=== PATIENT | female | born 1980 | race Caucasian/White ===

== ENCOUNTER 2018-06-02 16:42 | Emergency (ER) | payer BC, OTHER ==
--- NOTE | 2018-06-02 17:16 | EDM.PDOC ---
ED HPI GENERAL MEDICAL PROBLEM - General Chief Complaint: General Stated Complaint: HIGH BP Time Seen by Provider: 06/02/18 17:12 Source of Information: Reports: Patient History Limitations: Reports: No Limitations - History of Present Illness INITIAL COMMENTS - FREE TEXT/NARRATIVE: HISTORY AND PHYSICAL: History of present illness: Patient is a 37-year-old female who presents to the clinic today with concerns of high blood pressure. Patient states that while she was at work today she started noticing tingling sensation in her right hand that would come off and on. She states she told a coworker who decided to check her blood pressure and it was elevated in the 170s systolic over 90s diastolic at work. Patient is currently on a hypertensive medication given by the residency clinic. She states she follows up closely and was there a month ago and was well controlled. She states the sensation in her right hand feels as if her arm is falling asleep. She states this is coming off and on and is not staying. She states she is able to move the arm without any difficulties. Denies any pain or injury of the arm. Patient states she has had a "cold" the past several days with nasal congestion and cough. She notes feeling short of breath due to the cough. She does smoke a pack a day for over 20 years. Patient denies palpitations, difficulties breathing, wheezing, chest pain, abdominal pain, neck pain or arm pain, nausea, vomiting, or all other GI, , respiratory, or cardiovascular symptoms. Patient states she does have a history of hypertension and depression but denies any other health history. Review of systems: As per history of present illness and below otherwise all systems reviewed and negative. Past medical history: As per history of present illness and as reviewed below otherwise noncontributory. Surgical history: As per history of present illness and as reviewed below otherwise noncontributory. Social history: See social history for further information Family history: As per history of present illness and as reviewed below otherwise noncontributory. Physical exam: General: Patient is alert, oriented, and in no acute distress. She is sitting comfortably on exam table. HEENT: Atraumatic, normocephalic, pupils equal and reactive bilaterally, negative for conjunctival pallor or scleral icterus, mucous membranes moist, TMs normal bilaterally, throat clear, neck supple, nontender, trachea midline. No drooling or trismus noted. No meningeal signs. No hot potato voice noted. Lungs: Clear to auscultation, breath sounds equal bilaterally, chest nontender. Heart: S1S2, regular rate and rhythm. Patient does have a grade 3-4 systolic murmur best heard at the right upper sternal border Abdomen: Soft, nondistended, nontender. Negative for masses or hepatosplenomegaly. Negative for costovertebral tenderness. Pelvis: Stable nontender. Genitourinary: Deferred. Rectal: Deferred. Skin: Intact, warm, dry. No lesions or rashes noted. Extremities: Atraumatic, negative for cords or calf pain. Neurovascular unremarkable. Neuro: Awake, alert, oriented. Cranial nerves II through XII unremarkable. Cerebellum unremarkable. Motor and sensory unremarkable throughout. Exam nonfocal. Notes: Patient did have a murmur on exam today which she states she's never had a history of this. We'll do further workup to evaluate this murmur and her hypertension today. No intracranial bleed or mass noted. Mild nonspecific white matter disease, likely micro-angioplasty. Ethmoid and maxillary sinus disease. This may be acute sinusitis. After talking the patient should, she states she has been having issues with her sinuses but did not want to talk about that today as she was more concerned about her other health concerns. We'll treat for acute sinusitis. Lab work is unremarkable. Her blood pressure has somewhat improved. Chest x-ray shows no acute cardiopulmonary process. Discussed the importance for follow-up with her primary care provider. Supportive care measures were reviewed and discussed. Voices understanding and is agreeable to plan of care. Denies any further questions or concerns at this time. Diagnostics: CBC, CMP, Ekg, troponin, UA, urine hCG, chest x-ray, head CT Therapeutics; Saline, K-Dur Prescription: Augmentin Impression: Mild hypokalemia Elevated blood pressure Acute sinusitis Plan: 1. Take medication as prescribed. 2. Follow-up with your primary care provider in the next 1-2 days as discussed. 3. Return to the ED as needed and as discussed. Definitive disposition and diagnosis as appropriate pending reevaluation and review of above. - Related Data Allergies Allergy/AdvReac Type Severity Reaction Status Date / Time No Known Allergies Allergy Verified 06/02/18 17:09 Home Meds: Home Meds Amoxicillin/Potassium Clav [Augmentin 875-125 Tablet] 1 each PO BID 10 Days #20 tablet 06/02/18 [Rx] Sertraline [Zoloft] 50 mg PO DAILY 06/02/18 [History] Triamterene/Hydrochlorothiazid [Triamterene-HCTZ 37.5-25 MG] 1 tab PO DAILY [History] ED ROS GENERAL - Review of Systems Review Of Systems: ROS reveals no pertinent complaints other than HPI. ED EXAM, GENERAL - Physical Exam Exam: See Below (See dictation) Course - Vital Signs Last Recorded V/S: Last Vital Signs Temp 97.3 F 06/02/18 17:11 Pulse 56 L 06/02/18 18:52 Resp 16 06/02/18 18:52 BP 162/91 H 06/02/18 18:52 Pulse Ox 98 06/02/18 18:52 - Orders/Labs/Meds Orders: Active Orders 24 hr Category Date Time Status EKG Documentation Completion [RC] STAT Care 06/02/18 17:25 Active Chest 1V Frontal [CR] Stat Exams 06/02/18 17:25 Taken Labs: Laboratory Tests 06/02/18 06/02/18 06/02/18 Range/Units 17:31 17:31 18:10 WBC 7.26 (4.0-11.0) K/uL RBC 5.03 (4.30-5.90) M/uL Hgb 14.6 (12.0-16.0) g/dL Hct 42.7 (36.0-46.0) % MCV 84.9 (80.0-98.0) fL MCH 29.0 (27.0-32.0) pg MCHC 34.2 (31.0-37.0) g/dL RDW Std Deviation 41.6 (28.0-62.0) fl RDW Coeff of Jeff 14 (11.0-15.0) % Plt Count 148 L (150-400) K/uL MPV 11.00 (7.40-12.00) fL Neut % (Auto) 51.1 (48.0-80.0) % Lymph % (Auto) 38.0 (16.0-40.0) % [place] % (Auto) 6.5 (0.0-15.0) % Eos % (Auto) 4.0 (0.0-7.0) % Baso % (Auto) 0.4 (0.0-1.5) % Neut # (Auto) 3.7 (1.4-5.7) K/uL Lymph # (Auto) 2.8 H (0.6-2.4) K/uL [place] # (Auto) 0.5 (0.0-0.8) K/uL Eos # (Auto) 0.3 (0.0-0.7) K/uL Baso # (Auto) 0.0 (0.0-0.1) K/uL Nucleated RBC % 0.0 /100WBC Nucleated RBCs # 0 K/uL Sodium 138 (136-145) mmol/L Potassium 3.3 L (3.5-5.1) mmol/L Chloride 102 (98-107) mmol/L Carbon Dioxide 28.1 (21.0-32.0) mmol/L BUN 17 (7.0-18.0) mg/dL Creatinine 0.9 (0.6-1.0) mg/dL Est Cr Clr Drug Dosing 77.01 mL/min Estimated GFR (MDRD) > 60.0 ml/min Glucose 99 (74-106) mg/dL Calcium 8.9 (8.5-10.1) mg/dL Total Bilirubin 0.1 L (0.2-1.0) mg/dL AST 15 (15-37) IU/L ALT 23 (14-63) IU/L Alkaline Phosphatase 74 (46-116) U/L Troponin I < 0.050 (0.000-0.056) ng/mL Total Protein 7.0 (6.4-8.2) g/dL Albumin 3.5 (3.4-5.0) g/dL Globulin 3.5 (2.6-4.0) g/dL Albumin/Globulin Ratio 1.0 (0.9-1.6) Urine Color YELLOW Urine Appearance CLEAR Urine pH 6.0 (5.0-8.0) Ur Specific [place] 1.015 (1.001-1.035) Urine Protein NEGATIVE (NEGATIVE) mg/dL Urine Glucose (UA) NEGATIVE (NEGATIVE) mg/dL Urine Ketones NEGATIVE (NEGATIVE) mg/dL Urine Occult Blood NEGATIVE (NEGATIVE) Urine Nitrite NEGATIVE (NEGATIVE) Urine Bilirubin NEGATIVE (NEGATIVE) Urine Urobilinogen 0.2 (<2.0) EU/dL Ur Leukocyte Esterase NEGATIVE (NEGATIVE) Urine HCG, Qual (NEGATIVE) 06/02/18 Range/Units 18:10 WBC (4.0-11.0) K/uL RBC (4.30-5.90) M/uL Hgb (12.0-16.0) g/dL Hct (36.0-46.0) % MCV (80.0-98.0) fL MCH (27.0-32.0) pg MCHC (31.0-37.0) g/dL RDW Std Deviation (28.0-62.0) fl RDW Coeff of Jeff (11.0-15.0) % Plt Count (150-400) K/uL MPV (7.40-12.00) fL Neut % (Auto) (48.0-80.0) % Lymph % (Auto) (16.0-40.0) % [place] % (Auto) (0.0-15.0) % Eos % (Auto) (0.0-7.0) % Baso % (Auto) (0.0-1.5) % Neut # (Auto) (1.4-5.7) K/uL Lymph # (Auto) (0.6-2.4) K/uL [place] # (Auto) (0.0-0.8) K/uL Eos # (Auto) (0.0-0.7) K/uL Baso # (Auto) (0.0-0.1) K/uL Nucleated RBC % /100WBC Nucleated RBCs # K/uL Sodium (136-145) mmol/L Potassium (3.5-5.1) mmol/L Chloride (98-107) mmol/L Carbon Dioxide (21.0-32.0) mmol/L BUN (7.0-18.0) mg/dL Creatinine (0.6-1.0) mg/dL Est Cr Clr Drug Dosing mL/min Estimated GFR (MDRD) ml/min Glucose (74-106) mg/dL Calcium (8.5-10.1) mg/dL Total Bilirubin (0.2-1.0) mg/dL AST (15-37) IU/L ALT (14-63) IU/L Alkaline Phosphatase (46-116) U/L Troponin I (0.000-0.056) ng/mL Total Protein (6.4-8.2) g/dL Albumin (3.4-5.0) g/dL Globulin (2.6-4.0) g/dL Albumin/Globulin Ratio (0.9-1.6) Urine Color Urine Appearance Urine pH (5.0-8.0) Ur Specific [place] (1.001-1.035) Urine Protein (NEGATIVE) mg/dL Urine Glucose (UA) (NEGATIVE) mg/dL Urine Ketones (NEGATIVE) mg/dL Urine Occult Blood (NEGATIVE) Urine Nitrite (NEGATIVE) Urine Bilirubin (NEGATIVE) Urine Urobilinogen (<2.0) EU/dL Ur Leukocyte Esterase (NEGATIVE) Urine HCG, Qual NEGATIVE (NEGATIVE) Meds: Medications Discontinued Medications Generic Name Dose Route Start Last Admin Trade Name Freq PRN Reason Stop Dose Admin Sodium Chloride 1,000 mls @ 999 mls/hr 06/02/18 17:25 06/02/18 17:53 Normal Saline IV 06/02/18 18:25 999 mls/hr STAT ONE Administration Potassium Chloride 20 meq 06/02/18 18:12 06/02/18 18:53 Klor-Con M20 PO 06/02/18 18:13 20 meq ONETIME ONE Administration Departure - Departure Time of Disposition: 20:02 Disposition: Home, Self-Care 01 Clinical Impression: Hypokalemia Acute sinusitis Qualifiers: Sinusitis location: unspecified location Recurrence: not specified as recurrent Qualified Code(s): J01.90 - Acute sinusitis, unspecified Hypertension Qualifiers: Hypertension type: unspecified Qualified Code(s): I10 - Essential (primary) hypertension - Discharge Information Prescriptions: Amoxicillin/Potassium Clav [Augmentin 875-125 Tablet] 1 each PO BID 10 Days #20 tablet Instructions: Sinusitis, Adult, [id number] Referrals: PCP,Unknown [Primary Care Provider] - Forms: ED Department Discharge Additional Instructions: The following information is given to patients seen in the emergency department who are being discharged to home. This information is to outline your options for follow-up care. We provide all patients seen in our emergency department with a follow-up referral. The need for follow-up, as well as the timing and circumstances, are variable depending upon the specifics of your emergency department visit. If you don't have a primary care physician on staff, we will provide you with a referral. We always advise you to contact your personal physician following an emergency department visit to inform them of the circumstance of the visit and for follow-up with them and/or the need for any referrals to a consulting specialist. The emergency department will also refer you to a specialist when appropriate. This referral assures that you have the opportunity for follow-up care with a specialist. All of these measure are taken in an effort to provide you with optimal care, which includes your follow-up. Under all circumstances we always encourage you to contact your private physician who remains a resource for coordinating your care. When calling for follow-up care, please make the office aware that this follow-up is from your recent emergency room visit. If for any reason you are refused follow-up, please contact the [facility] at and asked to speak to the emergency department charge nurse. [facility] [address] [place] [address] [place] [address] 1. Take medication as prescribed. 2. Follow-up with your primary care provider in the next 1-2 days as discussed. 3. Return to the ED as needed and as discussed. - My Orders Last 24 Hours: My Active Orders 06/02/18 17:25 EKG Documentation Completion [RC] STAT Chest 1V Frontal [CR] Stat - Assessment/Plan Last 24 Hours: My Active Orders 06/02/18 17:25 EKG Documentation Completion [RC] STAT Chest 1V Frontal [CR] Stat
[2018-06-02] MEDS ORDERED: Sodium Chloride 0.9% 1,000 ML IV ONE (17:25)
[2018-06-02 18:06] LABS: CHLORIDE,CL 102 mmol/L (98-107); SODIUM,NA 138 mmol/L (136-145)
[2018-06-02] MEDS ORDERED: Potassium Chloride 20 MEQ Tab.ER PO ONE (18:12)
--- NOTE | 2018-06-02 19:47 | CT ---
INDICATION: Pain, hypertension. TECHNIQUE: CT head without contrast. COMPARISON: None. FINDINGS: CSF spaces: Within normal limits for age. Brain parenchyma: Dela Cruz-white differentiation is distinct. Minimal low density in the deep white matter. No intracranial bleed or mass effect. Skull base and calvarium: Air-fluid levels in the maxillary sinuses as well as ethmoid sinus opacification. The visualized orbits are grossly unremarkable. No skull fractures. IMPRESSION: 1. No intracranial bleed or mass effect. 2. Mild nonspecific white matter disease, likely microangiopathy. 3. Ethmoid and maxillary sinus disease. In the correct clinical setting this can be seen in acute sinusitis. Please note that all CT scans at this facility use dose modulation, iterative reconstruction, and/or weight-based dosing when appropriate to reduce radiation dose to as low as reasonably achievable. Dictated by Hitesh Cope MD @ Jun 02 2018 7:36PM Signed by Dr. Hitesh Cope @ Jun 02 2018 7:45PM
--- NOTE | 2018-06-02 21:13 | CR ---
INDICATION: Cough and hypertension. TECHNIQUE: Chest 1 view COMPARISON: None FINDINGS: Cardiovascular and mediastinum: Heart size and vasculature are normal in caliber and appearance. Lungs and pleural spaces: Lungs are clear. No sign of infiltrate or mass. No sign of pleural effusion. No pneumothorax. Bones and soft tissues: No significant findings. IMPRESSION: No acute or significant findings. Dictated by Hitesh Cope MD @ Jun 02 2018 9:10PM Signed by Dr. Hitesh Cope @ Jun 02 2018 9:11PM
== END 2018-06-02 20:15 | disposition home or self-care (01) ==
LOC: MW.ED 16:42
DX: I10 Essential (primary) hypertension (principal); J01.90 Acute sinusitis, unspecified; E87.6 Hypokalemia; Z79.899 Other long term (current) drug therapy
CPT/HCPCS: 70450; 71045; 80053; 81003; 81025; 84484; 85025; 93005; 96360; 99284; A9270; J7040; 99283

== ENCOUNTER 2018-07-12 18:53 | Emergency (ER) | payer BC ==
--- NOTE | 2018-07-12 19:31 | EDM.PDOC ---
ED HPI GENERAL MEDICAL PROBLEM - General Chief Complaint: Skin Complaint Stated Complaint: PERSONAL ISSUE Time Seen by Provider: 07/12/18 19:25 Source of Information: Reports: Patient History Limitations: Reports: No Limitations - History of Present Illness INITIAL COMMENTS - FREE TEXT/NARRATIVE: HISTORY AND PHYSICAL: History of present illness: Patient is a 37-year-old female who presents to the emergency room with complaints of rectal pain. She reports that she noticed an area of redness and swelling to the right leg near the rectum on Tuesday (07/09/18) and had followed up with a primary care provider on Tuesday for evaluation of this. She was placed on Bactrim DS. She states she has been taking her medications as prescribed (on day #3 of abx). She feels the area is more painful to palpation, increased with sitting or ambulation. She feels that there is drainage coming from the area, although can not find a specific source. Patient denies any fever , chills, headache, change in vision, syncope or near syncope. Denies any chest pain, back pain, shortness of breath or cough. Denies any abdominal pain, nausea , vomiting, diarrhea, constipation or dysuria. Has not noted any blood in urine or stool. Patient has been eating and drinking appropriately. Review of systems: As per history of present illness and below otherwise all systems reviewed and negative. Past medical history: As per history of present illness and as reviewed below otherwise noncontributory. Surgical history: As per history of present illness and as reviewed below otherwise noncontributory. Social history: See social history for further information Family history: As per history of present illness and as reviewed below otherwise noncontributory. Physical exam: General: Well-developed and well-nourished 37-year-old female. Alert and oriented. Nontoxic appearing and in no acute distress. HEENT: Atraumatic, normocephalic, pupils equal and reactive bilaterally, negative for conjunctival pallor or scleral icterus, mucous membranes moist, TMs normal bilaterally, throat clear, neck supple, nontender, trachea midline. No drooling or trismus noted. No meningeal signs. No hot potato voice noted. Lungs: Clear to auscultation, breath sounds equal bilaterally, chest nontender. Heart: S1S2, regular rate and rhythm without overt murmur Abdomen: Soft, nondistended, nontender. Negative for masses or hepatosplenomegaly. Negative for costovertebral tenderness. Pelvis: Stable nontender. Genitourinary: Deferred. Rectal: See SKIN for details. Skin: The inner one third of the medial right gluteal is diffusely erythematous , there is a localized area that is firm to palpation approximately the size of a golf ball to the medial gluteus at approximately 2 o'clock position from the rectum. The firmness does not extend into the rectum rather just on the outside rim approximately 1 finger breath. Nonfluctuant. Otherwise skin is intact, warm , dry. No lesions or rashes noted. Extremities: Atraumatic, moves all extremities per self with difficulty or deficits, negative for cords or calf pain. Neurovascular unremarkable. Neuro: Awake, alert, oriented. Cranial nerves II through XII unremarkable. Cerebellum unremarkable. Motor and sensory unremarkable throughout. Exam nonfocal. Notes: Patient is agreeable to routine lab work along with imagining. CT of pelvis shows Right posterior perianal abscess just distal to the anal canal measuring 2.7 x 1.[address] Sykes was consulted on this patient. He states he'll see the patient early in the morning tomorrow. Would like the patient started on clindamycin 300 mg 3 times a day 10 days. All this information was shared with the patient. She is agreeable to plan of care. Supportive care measures were reviewed and discussed. Voices understanding and is agreeable to plan of care. Denies any further questions or concerns at this time. Diagnostics: CBC, CMP, Blood Culture, UA, HCGU, CT pelvis Therapeutics: IV fluids, Zosyn Prescription: Clindamycin Closter (#20) Impression: Perianal abscess Plan: 1. Stop the Bactrim DS. Clindamycin has been prescribed 2. May take the pain medications as directed. Will cause drowsiness a do not take it will driving her needing to be functioning outside of the house. 3. Follow up with Dr Sykes tomorrow. He wants you to call his office tomorrow morning at [address] Sykes (general surgeon) at [phone] Sykes would like to see you in the morning (07/13/2018) for possible I&D. Please do not eat or drink anything after midnight tonight. His office is located at the [facility]. 4. Return to the ED as needed and as discussed. Definitive disposition and diagnosis as appropriate pending reevaluation and review of above. Right Buttock Pain Score (Numeric/FACES): 10 - Related Data Allergies Allergy/AdvReac Type Severity Reaction Status Date / Time No Known Allergies Allergy Verified 07/12/18 19:14 Home Meds: Home Meds Sertraline [Zoloft] 50 mg PO DAILY 06/02/18 [History] Triamterene/Hydrochlorothiazid [Triamterene-HCTZ 37.5-25 MG] 1 tab PO DAILY [History] Sulfamethoxazole/Trimethoprim [Bactrim Ds Tablet] 1 each PO BID 07/12/18 [ History] Past Medical History HEENT History: Reports: None Cardiovascular History: Reports: Hypertension Respiratory History: Reports: None Gastrointestinal History: Reports: None Genitourinary History: Reports: None [employer] History: Reports: Musculoskeletal History: Reports: Fracture Other Musculoskeletal History: ankle, collar bone Neurological History: Reports: None Psychiatric History: Reports: Anxiety, Depression Endocrine/Metabolic History: Reports: None Hematologic History: Reports: None Immunologic History: Reports: None Oncologic (Cancer) History: Reports: None Dermatologic History: Reports: None - Infectious Disease History Infectious Disease History: Reports: Chicken Pox - Past Surgical History HEENT Surgical History: Reports: Tonsillectomy Female Surgical History: Reports: Other (See Below) Other Female Surgeries/Procedures: partial hysterectomy Musculoskeletal Surgical History: Reports: Other (See Below) Other Musculoskeletal Surgeries/Procedures:: ankle sx Social & Family History - Family History Family Medical History: Noncontributory - Tobacco Use Smoking Status *Q: Current Every Day Smoker Years of Tobacco use: 20 Packs/Tins Daily: 0.5 - Caffeine Use Caffeine Use: Reports: Coffee - Recreational Drug Use Recreational Drug Use: No ED ROS GENERAL - Review of Systems Review Of Systems: ROS reveals no pertinent complaints other than HPI. ED EXAM, SKIN/RASH Exam: See Below (See dictation) Course - Vital Signs Last Recorded V/S: Last Vital Signs Temp 98.4 F 07/12/18 19:10 Pulse 93 07/12/18 19:10 Resp BP 157/101 H 07/12/18 19:10 Pulse Ox 97 07/12/18 19:10 - Orders/Labs/Meds Orders: Active Orders 24 hr Category Date Time Status CULTURE BLOOD [BC] Stat Lab 07/12/18 19:40 Received CULTURE BLOOD [BC] Stat Lab 07/12/18 20:10 Received Blood Culture x2 Reflex Set [OM.PC] Stat Oth 07/12/18 19:31 Ordered Labs: Laboratory Tests 07/12/18 07/12/18 07/12/18 Range/Units 19:40 19:40 19:40 WBC 11.37 H (4.0-11.0) K/uL RBC 4.82 (4.30-5.90) M/uL Hgb 14.1 (12.0-16.0) g/dL Hct 40.4 (36.0-46.0) % MCV 83.8 (80.0-98.0) fL MCH 29.3 (27.0-32.0) pg MCHC 34.9 (31.0-37.0) g/dL RDW Std Deviation 40.3 (28.0-62.0) fl RDW Coeff of Jeff 13 (11.0-15.0) % Plt Count 181 (150-400) K/uL MPV 11.50 (7.40-12.00) fL Neut % (Auto) 79.7 (48.0-80.0) % Lymph % (Auto) 9.9 L (16.0-40.0) % [place] % (Auto) 7.3 (0.0-15.0) % Eos % (Auto) 2.7 (0.0-7.0) % Baso % (Auto) 0.4 (0.0-1.5) % Neut # (Auto) 9.1 H (1.4-5.7) K/uL Lymph # (Auto) 1.1 (0.6-2.4) K/uL [place] # (Auto) 0.8 (0.0-0.8) K/uL Eos # (Auto) 0.3 (0.0-0.7) K/uL Baso # (Auto) 0.0 (0.0-0.1) K/uL Nucleated RBC % 0.0 /100WBC Nucleated RBCs # 0 K/uL Sodium 137 (136-145) mmol/L Potassium 3.1 L (3.5-5.1) mmol/L Chloride 99 (98-107) mmol/L Carbon Dioxide 27.4 (21.0-32.0) mmol/L BUN 16 (7.0-18.0) mg/dL Creatinine 1.0 (0.6-1.0) mg/dL Est Cr Clr Drug Dosing 69.31 mL/min Estimated GFR (MDRD) > 60.0 ml/min Glucose 101 (74-106) mg/dL Calcium 8.7 (8.5-10.1) mg/dL Total Bilirubin 0.4 (0.2-1.0) mg/dL AST 20 (15-37) IU/L ALT 34 (14-63) IU/L Alkaline Phosphatase 76 (46-116) U/L Total Protein 7.7 (6.4-8.2) g/dL Albumin 3.4 (3.4-5.0) g/dL Globulin 4.3 H (2.6-4.0) g/dL Albumin/Globulin Ratio 0.8 L (0.9-1.6) Urine Color YELLOW Urine Appearance CLEAR Urine pH 6.0 (5.0-8.0) Ur Specific [place] 1.020 (1.001-1.035) Urine Protein NEGATIVE (NEGATIVE) mg/dL Urine Glucose (UA) NEGATIVE (NEGATIVE) mg/dL Urine Ketones NEGATIVE (NEGATIVE) mg/dL Urine Occult Blood NEGATIVE (NEGATIVE) Urine Nitrite NEGATIVE (NEGATIVE) Urine Bilirubin NEGATIVE (NEGATIVE) Urine Urobilinogen 0.2 (<2.0) EU/dL Ur Leukocyte Esterase NEGATIVE (NEGATIVE) Urine HCG, Qual (NEGATIVE) 07/12/18 Range/Units 19:40 WBC (4.0-11.0) K/uL RBC (4.30-5.90) M/uL Hgb (12.0-16.0) g/dL Hct (36.0-46.0) % MCV (80.0-98.0) fL MCH (27.0-32.0) pg MCHC (31.0-37.0) g/dL RDW Std Deviation (28.0-62.0) fl RDW Coeff of Jeff (11.0-15.0) % Plt Count (150-400) K/uL MPV (7.40-12.00) fL Neut % (Auto) (48.0-80.0) % Lymph % (Auto) (16.0-40.0) % [place] % (Auto) (0.0-15.0) % Eos % (Auto) (0.0-7.0) % Baso % (Auto) (0.0-1.5) % Neut # (Auto) (1.4-5.7) K/uL Lymph # (Auto) (0.6-2.4) K/uL [place] # (Auto) (0.0-0.8) K/uL Eos # (Auto) (0.0-0.7) K/uL Baso # (Auto) (0.0-0.1) K/uL Nucleated RBC % /100WBC Nucleated RBCs # K/uL Sodium (136-145) mmol/L Potassium (3.5-5.1) mmol/L Chloride (98-107) mmol/L Carbon Dioxide (21.0-32.0) mmol/L BUN (7.0-18.0) mg/dL Creatinine (0.6-1.0) mg/dL Est Cr Clr Drug Dosing mL/min Estimated GFR (MDRD) ml/min Glucose (74-106) mg/dL Calcium (8.5-10.1) mg/dL Total Bilirubin (0.2-1.0) mg/dL AST (15-37) IU/L ALT (14-63) IU/L Alkaline Phosphatase (46-116) U/L Total Protein (6.4-8.2) g/dL Albumin (3.4-5.0) g/dL Globulin (2.6-4.0) g/dL Albumin/Globulin Ratio (0.9-1.6) Urine Color Urine Appearance Urine pH (5.0-8.0) Ur Specific [place] (1.001-1.035) Urine Protein (NEGATIVE) mg/dL Urine Glucose (UA) (NEGATIVE) mg/dL Urine Ketones (NEGATIVE) mg/dL Urine Occult Blood (NEGATIVE) Urine Nitrite (NEGATIVE) Urine Bilirubin (NEGATIVE) Urine Urobilinogen (<2.0) EU/dL Ur Leukocyte Esterase (NEGATIVE) Urine HCG, Qual NEGATIVE (NEGATIVE) Meds: Medications Discontinued Medications Generic Name Dose Route Start Last Admin Trade Name Freq PRN Reason Stop Dose Admin Sodium Chloride 1,000 mls @ 999 mls/hr 07/12/18 19:32 07/12/18 19:40 Normal Saline IV 07/12/18 20:32 999 mls/hr STAT ONE Administration Piperacillin Sod/Tazobactam 50 mls @ 100 mls/hr 07/12/18 20:22 07/12/18 21:06 Sod 3.375 gm/ Sodium Chloride IV 07/12/18 20:51 100 mls/hr ONETIME ONE Administration Iopamidol 100 ml 07/12/18 20:47 07/12/18 20:47 Isovue Multipack-370 (76%) IVPUSH 07/12/18 20:48 100 ml ONETIME STA Administration Morphine Sulfate 4 mg 07/12/18 19:33 07/12/18 19:40 Morphine IVPUSH 07/12/18 19:34 4 mg ONETIME ONE Administration Ondansetron HCl 4 mg 07/12/18 19:32 07/12/18 19:41 Zofran IVPUSH 07/12/18 19:33 4 mg ONETIME ONE Administration Departure - Departure Time of Disposition: 21:24 Disposition: Home, Self-Care 01 Clinical Impression: Perianal abscess - Discharge Information Instructions: Perirectal Abscess Referrals: PCP,None [Primary Care Provider] - Forms: ED Department Discharge Additional Instructions: The following information is given to patients seen in the emergency department who are being discharged to home. This information is to outline your options for follow-up care. We provide all patients seen in our emergency department with a follow-up referral. The need for follow-up, as well as the timing and circumstances, are variable depending upon the specifics of your emergency department visit. If you don't have a primary care physician on staff, we will provide you with a referral. We always advise you to contact your personal physician following an emergency department visit to inform them of the circumstance of the visit and for follow-up with them and/or the need for any referrals to a consulting specialist. The emergency department will also refer you to a specialist when appropriate. This referral assures that you have the opportunity for follow-up care with a specialist. All of these measure are taken in an effort to provide you with optimal care, which includes your follow-up. Under all circumstances we always encourage you to contact your private physician who remains a resource for coordinating your care. When calling for follow-up care, please make the office aware that this follow-up is from your recent emergency room visit. If for any reason you are refused follow-up, please contact the [facility] Emergency Department at and asked to speak to the emergency department charge nurse. [facility] - General Surgery Professional Building [address] [place] [address], [address] [place] [address] 1. Stop the Bactrim DS. Clindamycin has been prescribed 2. May take the pain medications as directed. Will cause drowsiness a do not take it will driving her needing to be functioning outside of the house. 3. Follow up with Dr Sykes tomorrow. He wants you to call his office tomorrow morning at [address] Sykes (general surgeon) at [phone] Sykes would like to see you in the morning (07/13/2018) for possible I&D. Please do not eat or drink anything after midnight tonight. His office is located at the [facility]. 4. Return to the ED as needed and as discussed. - My Orders Last 24 Hours: My Active Orders 07/12/18 19:31 Blood Culture x2 Reflex Set [OM.PC] Stat 07/12/18 19:40 CULTURE BLOOD [BC] Stat 07/12/18 20:10 CULTURE BLOOD [BC] Stat - Assessment/Plan Last 24 Hours: My Active Orders 07/12/18 19:31 Blood Culture x2 Reflex Set [OM.PC] Stat 07/12/18 19:40 CULTURE BLOOD [BC] Stat 07/12/18 20:10 CULTURE BLOOD [BC] Stat
[2018-07-12] MEDS ORDERED: Sodium Chloride 0.9% 1,000 ML IV ONE (19:32)
[2018-07-12] MEDS ORDERED: Ondansetron 4 MG/2 ML SDV IVPUSH ONE (19:32)
[2018-07-12] MEDS ORDERED: Morphine 4 MG/ML Syringe IVPUSH ONE (19:33)
[2018-07-12 20:19] LABS: CHLORIDE,CL 99 mmol/L (98-107); SODIUM,NA 137 mmol/L (136-145)
[2018-07-12] MEDS ORDERED: Piperacillin/Tazobactam 3.375 GM in Sodium Chloride 0.9% 50 ML IV ONE (20:22)
[2018-07-12] MEDS ORDERED: Iopamidol 755 MG/ML 500 ML Multipack Bottle IVPUSH STA (20:47)
--- NOTE | 2018-07-12 21:05 | CT ---
INDICATION: Right buttock abscess TECHNIQUE: CT pelvis with 100 cc Isovue 370 intravenous contrast. COMPARISON: None FINDINGS: Just distal to the anal canal posterior and to the right there is some soft tissue thickening with mild inflammatory fat stranding. There is some central low density consistent with a perianal abscess. This measures 2.7 x 1.8 x 0.9 centimeters. Mildly prominent inguinal lymph nodes are noted, presumed reactive, largest measuring 12 millimeters on the right. Right pelvic sidewall lymph nodes measure up to 12 millimeters in short axis as well. The bladder is unremarkable. Patient is status posthysterectomy. No dilated loops of large or small intestine. Bony mineralization is within normal limits. IMPRESSION: 1. Right posterior perianal abscess just distal to the anal canal measuring 2.7 x 1.8 x 0.9 centimeters. 2. Right pelvic sidewall and inguinal lymphadenopathy, presumed reactive. Please note that all CT scans at this facility use dose modulation, iterative reconstruction, and/or weight-based dosing when appropriate to reduce radiation dose to as low as reasonably achievable. Dictated by Hitesh Cope MD @ Jul 12 2018 8:59PM Signed by Dr. Hitesh Cope @ Jul 12 2018 9:04PM
[2018-07-12] MEDS ORDERED: Acetaminophen/HYDROcodone 325-5 MG Tab PO ONE (21:26)
== END 2018-07-12 22:10 | disposition home or self-care (01) ==
LOC: MW.ED 18:53
DX: K61.0 Anal abscess (principal); I10 Essential (primary) hypertension; F41.9 Anxiety disorder, unspecified; F32.9 Major depressive disorder, single episode, unspecified; F17.210 Nicotine dependence, cigarettes, uncomplicated; Z79.899 Other long term (current) drug therapy
CPT/HCPCS: 72193; 80053; 81003; 81025; 85025; 87040; 96361; 96365; 96375; 99284; A9270; J2270; J2405; J2543; J7040; J7050; Q9967